=== PATIENT | female | born 1945 | race Caucasian/White ===

== ENCOUNTER 2024-03-19 23:33 | Inpatient (IN) ==
[2024-03-20] MEDS: oxyCODONE/Acetamin 5/325 mg TAB PO ONE ×2 (01:24→09:25)
[2024-03-20] MEDS ORDERED: Polyethylene Glycol 3350 17 GM PACKET PO PRN ×2 (15:39→15:54)
[2024-03-20] MEDS ORDERED: Senna TAB 8.6 mg TAB PO PRN (15:54)
[2024-03-20 16:32] LABS: Hematocrit 35.6 % (35-45); Mean Corpuscular Hemoglobin 30.8 pg (27-33); Mean Corpuscular Hgb Conc 33.6 g/dL (31-36); Mean Corpuscular Volume 91.4 fL (80-97); Mean Platelet Volume 9.9 fL (7.5-11.2); Platelet Count 124 10^3/uL (150-450); Red Blood Count 3.89 10^6/uL (3.63-4.92); Red Cell Distribution Width 14.5 % (12-17); White Blood Count 5.5 10^3/uL (3.8-11.8)
[2024-03-20 17:39] LABS: Calcium 9.1 mg/dL (8.6-10.3); Creatinine, Serum 0.84 mg/dL (0.51-0.95); Potassium 3.9 mmol/L (3.5-5.0); eGFR CKD-EPI 71.1 (>60)
[2024-03-20 18:07] LABS: Vitamin D Total 25(OH) 33.7 ng/mL (20-50)
[2024-03-20] MEDS: Heparin 5000 UNITS/ML 1 mL VIAL SUBCUT SCH (21:44)
[2024-03-20] MEDS: Magnesium Hydroxide LIQ 30 ML UDC PO SCH (22:30)
[2024-03-21 06:07] LABS: Hematocrit 33.1 % (35-45); Hemoglobin 11.5 g/dL (11.5-14.3); Mean Corpuscular Hemoglobin 31.5 pg (27-33); Mean Corpuscular Hgb Conc 34.6 g/dL (31-36); Mean Corpuscular Volume 90.8 fL (80-97); Red Blood Count 3.64 10^6/uL (3.63-4.92); Red Cell Distribution Width 14.3 % (12-17); White Blood Count 4.4 10^3/uL (3.8-11.8)
[2024-03-21 06:21] LABS: ABS Eosinophils 0.1 10^3/uL (0.0-0.5); ABS Lymphocytes 1.2 10^3/uL (1.0-4.8); ABS Monocytes 0.3 10^3/uL (0.0-0.9); ABS Neutrophils 2.7 10^3/uL (1.5-7.6); Eosinophil % 2.3 %; Mean Platelet Volume 9.6 fL (7.5-11.2); Nucleated Red Blood Cells % 0.1 %/100WBC (0.0-0.8); Platelet Count 92 10^3/uL (150-450)
[2024-03-21 06:23] LABS: Creatinine, Serum 0.72 mg/dL (0.51-0.95); Potassium 3.9 mmol/L (3.5-5.0); eGFR CKD-EPI 85.5 (>60)
[2024-03-21] MEDS ORDERED: Morphine 2 MG/ML SYRINGE IV PRN (08:01)
[2024-03-23 06:13] LABS: ABS Eosinophils 0.1 10^3/uL (0.0-0.5); ABS Monocytes 0.3 10^3/uL (0.0-0.9); ABS Neutrophils 2.7 10^3/uL (1.5-7.6); ABS Nucleated RBC 0.01 10^3/ul; Eosinophil % 1.8 %; Hematocrit 28.8 % (35-45); Hemoglobin 9.7 g/dL (11.5-14.3); Lymphocyte % 23.5 %; Mean Corpuscular Hemoglobin 30.7 pg (27-33); Mean Corpuscular Hgb Conc 33.8 g/dL (31-36); Mean Platelet Volume 9.4 fL (7.5-11.2); Nucleated Red Blood Cells % 0.1 %/100WBC (0.0-0.8); Platelet Count 101 10^3/uL (150-450); Red Blood Count 3.16 10^6/uL (3.63-4.92); Red Cell Distribution Width 14.3 % (12-17); White Blood Count 4.1 10^3/uL (3.8-11.8)
[2024-03-23] MEDS ORDERED: Propofol 10 MG/ML 20 ML BTL ONE (07:11)
[2024-03-23] MEDS ORDERED: Lidocaine 2% PF 5 ML VIAL ONE (07:11)
[2024-03-23] MEDS ORDERED: Midazolam 2 mg/2 ml VIAL 1 mg/ml 2 ml VIAL (2 mg) ONE ×2 (07:11→12:41)
[2024-03-23] MEDS ORDERED: fentaNYL 100 mcg/2 ml 50 MCG/ML VIAL ONE ×2 (07:11→12:41)
[2024-03-23] MEDS ORDERED: Rocuronium 50 mg VIAL 10 mg/ml 5 ml VIAL (50 mg) ONE (07:11)
[2024-03-23] MEDS ORDERED: Bupivacaine 0.5% SDV PF 30ML VIAL ONE (12:00)
[2024-03-23] MEDS ORDERED: Clindamycin 900 MG/50 **NS BAG 900 MG/50 ML BAG ONE (12:18)
[2024-03-23] MEDS ORDERED: Dexamethasone IV 4 MG/ML VIAL 1 ml VIAL ONE ×2 (12:25→14:36)
[2024-03-23] MEDS ORDERED: Famotidine IV 10 MG/ML 2 ml VIAL (20 mg) ONE (12:25)
[2024-03-23] MEDS: Dexamethasone IV 4 MG/ML VIAL 1 ml VIAL IV SLOW PU ONE (12:32)
[2024-03-23] MEDS: Famotidine IV 10 MG/ML 2 ml VIAL (20 mg) IV SLOW PU ONE (12:32)
[2024-03-23] MEDS ORDERED: ROPIVACAINE 5 MG/ML 30 ML BTL (0.5%) ONE (12:38)
[2024-03-23] MEDS ORDERED: Naloxone 0.4 mg VIAL 0.4 mg/ml 1 ml VIAL IV PRN (13:49)
[2024-03-23] MEDS ORDERED: fentaNYL 100 mcg/2 ml 50 MCG/ML VIAL IV PRN (13:49)
[2024-03-23] MEDS ORDERED: Ondansetron 4 mg VIAL 2 MG/ML 2 ml VIAL ONE (14:36)
[2024-03-24 06:16] LABS: ABS Lymphocytes 0.6 10^3/uL (1.0-4.8); ABS Monocytes 0.5 10^3/uL (0.0-0.9); ABS Neutrophils 5.8 10^3/uL (1.5-7.6); Hematocrit 30.5 % (35-45); Hemoglobin 10.6 g/dL (11.5-14.3); Lymphocyte % 8.7 %; Mean Corpuscular Hemoglobin 31.7 pg (27-33); Mean Corpuscular Hgb Conc 34.8 g/dL (31-36); Mean Corpuscular Volume 91.3 fL (80-97); Mean Platelet Volume 9.8 fL (7.5-11.2); Nucleated Red Blood Cells % 0.1 %/100WBC (0.0-0.8); Platelet Count 151 10^3/uL (150-450); Red Blood Count 3.34 10^6/uL (3.63-4.92); Red Cell Distribution Width 14.3 % (12-17); White Blood Count 6.9 10^3/uL (3.8-11.8)
[2024-03-24 06:29] LABS: Calcium 8.9 mg/dL (8.6-10.3); Creatinine, Serum 0.73 mg/dL (0.51-0.95); Magnesium 2.2 mg/dL (1.9-2.7); Potassium 4.4 mmol/L (3.5-5.0); eGFR CKD-EPI 84.1 (>60)
[2024-03-27] MEDS: Magnesium Hydroxide LIQ 30 ML UDC PO PRN (07:16)
[2024-03-29 10:50] VITALS: BP 127/62
[2024-03-29 12:20] LABS: Rapid COVID-19 Molecular Undetected (Undetected)
== END 2024-03-29 15:10 | DRG 519 ==
LOC: ED 23:33 → EDHOLD 03-20 14:15 → SSU 03-20 19:37
PROVIDERS: ADMIT Internal Medicine; ATTEND Internal Medicine